=== PATIENT | male | born 1945 | race Caucasian/White ===

== ENCOUNTER 2023-06-06 12:34 | Emergency (ER) | payer MEDICARE ==
[~2023-06-06] VITALS: Ht 182.9 cm; Wt 65.8 kg
[~2023-06-06 12:34] MED LIST: ACET325; ACET500; AMOX500 PO; ASCO500; ASPI325; ASPI325 PO; ATEN50 PO; BP MED; CIPR500; CIPR500 PO; CLON.1 PO; CLOP75; CYCL10 PO; DIOVAN HCT; DOCU100; FINA5 PO; FISH1000 PO; HYDACE10B PO; HYDACE5; HYDACE5 PO; HYDMOR2 PO; IBUP600 PO; KETO10 PO; LEVFLO500 PO; LISI20; LISI20 PO; LORA2 PO; Levaquin500 MG PO; MECL25 PO; Multivitamin1 EAC2 PO; NEOPOLHCSU OT; Norco 5-325 Ta1 EACH PO; OXYACE5T PO; Percocet 5-3251 EACH PO; Prinivil10 MG PO; ROSU10TA PO; RXHYDACE PO; RXLORA1 PO; RXTRAM50 PO; Robaxin-750750 MG PO; TERA5 PO; TRAM50 PO; VITAMIN D31000 UNIT PO
[2023-06-06 16:33] LABS: Source, Urine Clean Catch
[2023-06-06 16:42] LABS: Appearance, Urine Hazy (Clear); Bilirubin, Urine Neg (Neg); Blood, Urine 3+ (Neg); Color, Urine Yellow (P-Yellow); Glucose Qualitative, Urine Neg (Neg); Ketones, Urine Neg (Neg); Leukocyte Esterase, Urine 3+ (Neg); Nitrite, Urine Neg (Neg); Protein, Urine 1+ (Neg); Urobilinogen, Urine 1+ (Normal)
[2023-06-06 17:14] LABS: Bacteria Many /hpf; Squamous Epithelial Cells Rare /hpf (Few); White Blood Cells, Urine 50-100 /hpf (0-5)
[2023-06-06] MEDS ORDERED: LEVFLO500 PO (17:24)
[2023-06-06 17:45] VITALS: BP 150/78
== END 2023-06-06 17:46 | disposition home or self-care (01) ==
LOC: ER 12:34
PROVIDERS: Student in an Organized Health Care Education/Training Program
DX: N45.1 Epididymitis (principal); N43.2 Other hydrocele; I10 Essential (primary) hypertension
CPT/HCPCS: 76870; 81001; 87077; 87086; 87186; 96372; 99284-25; A9270; J1885

== ENCOUNTER 2025-07-25 19:36 | Emergency (ER) | payer MEDICARE ==
[~2025-07-25] VITALS: Ht 182.9 cm; Wt 65.8 kg
[2025-07-25 19:44] VITALS: BP 200/112
== END 2025-07-25 22:14 | disposition home or self-care (01) ==
LOC: ER 19:36
DX: S73.102A Unspecified sprain of left hip, initial encounter (principal); I10 Essential (primary) hypertension; Z79.82 Long term (current) use of aspirin; Z79.899 Other long term (current) drug therapy; W18.30XA Fall on same level, unspecified, initial encounter
CPT/HCPCS: 73502; 73562-LT; 99283-25